=== PATIENT | female | born 1975 | race African-American/Black ===

== ENCOUNTER 2023-07-21 07:46 | Day surgery (SDC) | payer BC ==
[2023-07-14 15:37] VITALS: BMI 28.4
[2023-07-21 09:24] VITALS: TEMP 97
[2023-07-21 09:25] VITALS: RESP 18
[2023-07-21 09:26] VITALS: BP 106/67; PULSE 86
== END 2023-07-21 09:45 | disposition home or self-care (01) ==
LOC: FASU-ENDO 07:46
PROVIDERS: ATTEND Internal Medicine Gastroenterology
PROC: 0DBH8ZX Excision of Cecum, Via Natural or Artificial Opening Endoscopic, Diagnostic (ICD-10-PCS; principal; 2023-07-21 08:55)
DX: Z12.11 Encounter for screening for malignant neoplasm of colon (principal); K63.5 Polyp of colon; K57.30 Diverticulosis of large intestine without perforation or abscess without bleeding; Z86.010 Personal history of colon polyps
CPT/HCPCS: 81025; 88305-TC